=== PATIENT | female | born 1950 | race American Indian/Alaskan Native ===

== ENCOUNTER 2017-02-07 12:21 | Outpatient (CLI) | payer MEDICARE | END 2017-02-07 12:22 | disposition home or self-care (01) | LOC: VAS 12:21 | PROVIDERS: ATTEND Podiatrist Foot & Ankle Surgery | DX: M79.661 Pain in right lower leg (principal); M79.662 Pain in left lower leg; M79.89 Other specified soft tissue disorders ==

== ENCOUNTER 2019-02-08 19:56 | Emergency (ER) | payer MEDICARE ==
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
[2019-02-08 20:56] LABS: Hematocrit 40.9 % (30.3-42.9); Hemoglobin 13.9 gm/dl (10.1-14.3); Mean Corpuscular HGB Conc 34 % (30-34); Mean Corpuscular Volume 91 fl (79-97); Platelet Count 191 K/mm3 (140-440); Red Blood Count 4.51 M/mm3 (3.65-5.03); Red Cell Distribution Width 13.6 % (13.2-15.2)
[2019-02-08 21:21] LABS: BUN/Creatinine Ratio 11; Blood Urea Nitrogen 8 mg/dL (7-17); Calcium 9.8 mg/dL (8.4-10.2); Hemolysis Index 9
[2019-02-08] MEDS ORDERED: TYLENOL PO ONE (21:45)
[2019-02-08] MEDS ORDERED: IBUPROFEN PO ONE (21:45)
[2019-02-08 21:52] LABS: Basophils % (Manual) 0 % (0.0-1.8); Platelet Estimate Consistent w Auto; Total Cells Counted 100
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
[2019-02-09 04:11] VITALS: BP 163/85
== END 2019-02-09 04:10 | disposition home or self-care (01) ==
LOC: ED 19:56
DX: S73.102A Unspecified sprain of left hip, initial encounter (principal); S83.92XA Sprain of unspecified site of left knee, initial encounter; M62.838 Other muscle spasm; R51 Headache; I10 Essential (primary) hypertension; E11.9 Type 2 diabetes mellitus without complications; M19.90 Unspecified osteoarthritis, unspecified site; Z86.718 Personal history of other venous thrombosis and embolism; Z86.73 Personal history of transient ischemic attack (TIA), and cerebral infarction without residual deficits; Z87.891 Personal history of nicotine dependence; Z90.710 Acquired absence of both cervix and uterus; Z79.84 Long term (current) use of oral hypoglycemic drugs; V49.59XA Passenger injured in collision with other motor vehicles in traffic accident, initial encounter; Y93.89 Activity, other specified; Y92.410 Unspecified street and highway as the place of occurrence of the external cause; Y99.8 Other external cause status
CPT/HCPCS: 36415; 70450; 72125; 80048; 84484; 85007; 85025; 93005; 93010